=== PATIENT | female | born 1960 | race Caucasian/White ===

== ENCOUNTER → 2017-04-09 | Outpatient (CLI) | payer BC ==
--- NOTE | 2017-04-10 06:35 | CT ---
EXAMINATION TYPE: CT brain w con DATE OF EXAM: 04/09/2017 COMPARISON: NONE HISTORY: Sharp pain Right side posterior head for [address] DLP: 1201 mGycm Automated exposure control for dose reduction was used. CONTRAST: CT scan of the head is performed with IV Contrast, patient injected with 100 mL of Omnipaque 300. FINDINGS: There is no abnormal enhancing mass or midline shift identified. The ventricles and sulci are within normal limits in size. Carmichael-white matter differentiation is fairly well-maintained. The globes are intact and the visualized sinuses are clear. IMPRESSION: No significant finding is seen to account for patient's symptoms.
== END | disposition home or self-care (01) ==
LOC: RADCTMAIN 16:36
PROVIDERS: ATTEND Internal Medicine
DX: G44.52 New daily persistent headache (NDPH) (principal)
CPT/HCPCS: 70460; Q9967

== ENCOUNTER → 2024-03-26 | Outpatient (CLI) | payer BC ==
--- NOTE | 2024-03-26 17:03 | US ---
EXAMINATION TYPE: US bladder DATE OF EXAM: 03/26/2024 COMPARISON: NONE CLINICAL INDICATION: Female, 64 years old with history of R33.9 RETENTION OF URINE, UNSPECIFIED; Urin e retention, for the past year patient has noticed increase in needing to void hourly, nocturia has a lso begun TECHNIQUE: Multiple sonographic images of the bladder are obtained. FINDINGS: EXAM MEASUREMENTS: Post Void Residual Volume: 74 mL Normal Post Void Residual (less than 50ml): no IMPRESSION: Mildly prominent postvoid residual
== END | disposition home or self-care (01) ==
LOC: RADUSWWP 15:12
PROVIDERS: ATTEND Internal Medicine
DX: R33.9 Retention of urine, unspecified (principal); R39.198 Other difficulties with micturition
CPT/HCPCS: 76857

== ENCOUNTER 2024-11-16 09:26 | Day surgery (SDC) | payer BC ==
[2024-11-12 15:36] VITALS: BMI 25.1
[2024-11-16] MEDS: IV FLUID CONTINUATION 1,000 ML IV ONE ×2 (09:40→10:33)
[2024-11-16] MEDS ORDERED: LIDOCAINE 1% (10MG/ML) FOR IV START INTRADERMA PRN (09:43)
[2024-11-16 09:47] VITALS: RESP 16; TEMP 97.7
[2024-11-16] MEDS: LACTATED RINGERS 1,000 ML IV SCH (09:51)
[2024-11-16] MEDS ORDERED: LIDOCAINE 1% INJ 10MG/ML (20 ML MDV) ONE (10:18)
[2024-11-16] MEDS ORDERED: PROPOFOL 10 MG/ML 20 ML VIAL IV ONE (10:18)
--- NOTE | 2024-11-16 10:35 | P.PCN ---
Date of Procedure: 11/16/24 Preoperative Diagnosis: GERD Postoperative Diagnosis: Hiatal hernia Duodenitis Procedure(s) Performed: EGD with biopsy Anesthesia: MATT Surgeon: Angel Luis Fischer Pathology: other (Biopsy of duodenum, antrum, GE junction) Condition: stable Disposition: same day Indications for Procedure: 64-year-old female presents today for upper endoscopy. She has history of GERD and takes omeprazole every other day. Risks, benefits and alternatives were provided to the patient. All questions answered. Operative Findings: Mild duodenitis Hiatal hernia Description of Procedure: The patient was brought into the endoscopy suite and placed in left lateral decubitus position. Adequate sedation was achieved using conscious sedation. A bite-block was placed and an endoscope was placed in the oropharynx and advanced under endoscopic visualization. The endoscope was advanced through the esophagus into the stomach, through the gastric antrum and in through the pylorus. The third portion of duodenum was visualized. The endoscope was then slowly withdrawn. The first portion of duodenum was noted to have mild inflammatory changes. Biopsies were taken. The antrum was noted to have mild inflammatory changes. Biopsies were taken. The gastric body distended normally and the gastric folds appeared normal and flattened with insufflation. A retroflexed view of the fundus and GE junction revealed mild hiatal hernia. GE junction appeared normal and biopsies were taken. The esophagus appeared endoscopically normal. Excess air was removed and the scope was withdrawn and the procedure was completed. The patient was sent to PACU in stable condition.
[2024-11-16 10:48] VITALS: BP 121/75; PULSE 68
== END 2024-11-16 11:11 | disposition home or self-care (01) ==
LOC: ORWHC2ENDO 09:26
PROVIDERS: ATTEND Surgery
DX: K21.9 Gastro-esophageal reflux disease without esophagitis (principal); K29.80 Duodenitis without bleeding; K29.70 Gastritis, unspecified, without bleeding; K31.9 Disease of stomach and duodenum, unspecified; K44.9 Diaphragmatic hernia without obstruction or gangrene; Z79.899 Other long term (current) drug therapy; Z88.0 Allergy status to penicillin
CPT/HCPCS: 43239; 88305; J2003; J2704